=== PATIENT | female | born 1955 | race Caucasian/White ===

== ENCOUNTER 2017-12-22 14:11 | Emergency (ER) | payer OTHER ==
[~2017-12-22] VITALS: Ht 154.9 cm; Wt 74.8 kg
[2017-12-22 14:41] VITALS: Ht 154.9 cm; Wt 74.8 kg
[2017-12-22 16:12] VITALS: BP 160/70
== END 2017-12-22 16:12 | disposition home or self-care (01) ==
LOC: ED 14:11
DX: L03.113 Cellulitis of right upper limb (principal); I10 Essential (primary) hypertension; M17.11 Unilateral primary osteoarthritis, right knee

== ENCOUNTER 2018-07-08 04:37 | Emergency (ER) | payer OTHER ==
[~2018-07-08] VITALS: Ht 154.9 cm; Wt 76.4 kg
[2018-07-08 04:50] VITALS: BP 157/83; Ht 154.9 cm; Wt 76.4 kg
== END 2018-07-08 08:57 | disposition left against medical advice (07) ==
LOC: ED 04:37
DX: Z53.21 Procedure and treatment not carried out due to patient leaving prior to being seen by health care provider (principal)

== ENCOUNTER 2018-07-08 20:23 | Emergency (ER) | payer OTHER ==
[~2018-07-08] VITALS: Ht 154.9 cm; Wt 76.7 kg
[2018-07-08 22:54] VITALS: BP 134/75
== END 2018-07-08 22:54 | disposition home or self-care (01) ==
LOC: ED 20:23
DX: D17.24 Benign lipomatous neoplasm of skin and subcutaneous tissue of left leg (principal); I10 Essential (primary) hypertension; M19.90 Unspecified osteoarthritis, unspecified site; F32.9 Major depressive disorder, single episode, unspecified; Z87.81 Personal history of (healed) traumatic fracture
CPT/HCPCS: Q0092

== ENCOUNTER 2019-08-06 06:13 | Emergency (ER) | payer OTHER ==
[~2019-08-06] VITALS: Ht 154.9 cm; Wt 73.3 kg
[2019-08-06 06:19] VITALS: Ht 154.9 cm; Wt 73.3 kg
[2019-08-06 06:57] VITALS: BP 194/87
== END 2019-08-06 06:57 | disposition home or self-care (01) ==
LOC: ED 06:13
DX: L98.499 Non-pressure chronic ulcer of skin of other sites with unspecified severity (principal); L03.012 Cellulitis of left finger; I10 Essential (primary) hypertension

== ENCOUNTER 2019-10-17 08:53 | Emergency (ER) | payer OTHER ==
[~2019-10-17] VITALS: Ht 154.9 cm; Wt 76.4 kg
[2019-10-17 09:18] VITALS: Ht 154.9 cm; Wt 76.4 kg
[2019-10-17 11:24] VITALS: BP 163/76
== END 2019-10-17 11:24 | disposition home or self-care (01) ==
LOC: ED 08:53
DX: M25.462 Effusion, left knee (principal); M11.262 Other chondrocalcinosis, left knee; I10 Essential (primary) hypertension

== ENCOUNTER 2020-03-22 04:32 | Emergency (ER) | payer OTHER ==
[~2020-03-22] VITALS: Ht 154.9 cm; Wt 72.6 kg
[2020-03-22 04:34] VITALS: BP 119/68; Ht 154.9 cm; Wt 72.6 kg
== END 2020-03-22 05:18 | disposition left against medical advice (07) ==
LOC: ED 04:32
DX: R05 Cough (principal); I10 Essential (primary) hypertension; M19.90 Unspecified osteoarthritis, unspecified site
CPT/HCPCS: 83880; 85378; 87804; U0003-CS